=== PATIENT | male | born 1955 | race Caucasian/White ===

== ENCOUNTER 2024-06-28 11:52 | Emergency (ER) | payer MEDICARE, OTHER ==
[2024-06-28] MEDS ORDERED: Lidocaine 1% PF 5 ML VIAL ONE (12:21)
[2024-06-28] MEDS ORDERED: Bacitracin 1 PK ONE (12:36)
== END 2024-06-28 13:20 | disposition home or self-care (01) ==
LOC: CSHERS 11:52
DX: S61.210A Laceration without foreign body of right index finger without damage to nail, initial encounter (principal); W26.8XXA Contact with other sharp object(s), not elsewhere classified, initial encounter
CPT/HCPCS: 12001; 99282